=== PATIENT | female | born 1940 | race Caucasian/White ===

== ENCOUNTER 2017-02-18 15:30 | Outpatient (CLI) | payer MEDICARE, BC ==
--- NOTE | 2017-02-19 07:14 | RAD ---
PA AND LATERAL CHEST X-RAY 02/18/2017 HISTORY: Preoperative evaluation. COMPARISON: 03/21/2014 FINDINGS: The cardiac silhouette and pulmonary vasculature are within normal limits. Linear areas of scarring are again seen at the right lung base. Surgical clips overly the left breast. Surgical clips are also again seen overlying the left hilar region. There has been no interval change from the prior e xam. IMPRESSION: 1. No acute cardiopulmonary process. 2. Chronic lung changes, right lung base and right mid lung zone. POS: [facility]
== END 2017-02-18 15:31 | disposition home or self-care (01) ==
LOC: NAV RAD 15:30
PROVIDERS: ATTEND Internal Medicine
DX: Z01.818 Encounter for other preprocedural examination (principal)
CPT/HCPCS: 71020

== ENCOUNTER 2021-03-19 12:12 | Outpatient (CLI) | payer MEDICARE, BC | END 2021-03-19 12:13 | disposition home or self-care (01) | LOC: NAV RAD 12:12 | PROVIDERS: ATTEND Internal Medicine | DX: M25.562 Pain in left knee (principal) ==